=== PATIENT | female | born 1940 | race Caucasian/White ===

== ENCOUNTER → 2016-10-18 | Outpatient (CLI) | payer OTHER ==
[2015-12-05 09:30] VITALS: BP 137/67
[~2016-10-18] MED LIST: ALBU2.5V5 NEB; AMLO5TAB2 PO; BUDE10.2 IH; CEFP200T PO; CHOL200027 PO; CYAN10005 PO; Fluticasone/Vilanterol INH; HYDR-2678 PO; PRED-220 PO
--- NOTE | 2016-10-18 11:29 | RAD ---
Indication cough fever. History of lung malignancy. PA and lateral views the chest were obtained and are compared to an examination 07/05/2016. Known parenchymal mass in the right lung is reproduced. It is larger now measuring approximately 17 x 10 cm where as previously it measured approximately 14 x 8. The heart and pulmonary vessels are normal and the left lung is clear. There is no pleural fluid or pneumothorax. The visualized bony structures appear grossly intact. Breast implants are noted. IMPRESSION: Enlarging soft tissue mass in the right lung compatible with progressive ongoing primary malignancy
== END | disposition home or self-care (01) ==
LOC: RAD 09:33
PROVIDERS: ATTEND Radiology Radiation Oncology
DX: C34.90 Malignant neoplasm of unspecified part of unspecified bronchus or lung (principal); R05 Cough; R50.9 Fever, unspecified; R53.83 Other fatigue
CPT/HCPCS: 71020

== ENCOUNTER → 2017-01-03 | Outpatient (CLI) | payer OTHER ==
[2015-12-05 09:30] VITALS: BP 137/67
[~2017-01-03] MED LIST changes: +IOHEXOL 300 MG/ML 75 ML VIAL IV ONE
--- NOTE | 2017-01-05 08:58 | RAD ---
CT chest with IV contrast . 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 Comparison: CT chest 11/27/2015. Technique: Helical CT of the chest was performed after the administration of intravenous contrast, 75 mL Omnipaque 350. Axial, sagittal, and coronal reconstructions were obtained. One or more of the following individualized dose reduction techniques were utilized for the study: Automated exposure control Adjustment of mA and/or kV according to patient's size Use of iterative reconstruction technique. Findings: Visualized thyroid is mildly heterogeneous. Trachea and mainstem bronchi appear patent. Aortic atherosclerosis is present. Nonspecific right lower paratracheal lymph node measuring 1.3 x 0.8 cm (previously 1.4 x 0.9 cm), not definitely changed. Largest subcarinal lymph node measures 1.3 x 0.7 cm (previously 1.9 x 0.6 cm). Bilateral silicone breast implants are seen with capsular calcifications. Moderate emphysematous changes of lungs are seen. There is interval enlargement of large right lower lobe mass. The mass is heterogeneous and demonstrates areas of calcification as well as areas of lower attenuation which could indicate necrosis. There is also evidence of invasion of the mass into the right chest wall involving the right posterior ninth rib versus metastasis to the right ninth rib. Including the chest wall/right ninth rib component, the mass measures roughly 11 cm in AP dimension x 12 cm in transverse dimension x 15.5 cm in craniocaudal dimension (on previous study, maximum dimension was reported at 9.5 cm). At the right lung base, there appeared to be several separate lobulated masses and nodules, compatible with satellite lesions. T9 vertebral level demonstrates sclerotic focus, unchanged from previous study, favored to be bone island. The liver demonstrates multiple low-attenuation lesions with the largest unchanged in the right hepatic lobe measuring 3.7 cm with Hounsfield units and is compatible with a cyst. The smaller lesions are unchanged as well. Impression: 1. Interval enlargement of right lower lobe heterogeneous mass with areas of calcification. There is now evidence of direct extension to the right chest wall versus large osseous metastasis involving the posterior right ninth rib. There is also interval development of multiple large satellite masses and nodules at the right lung base. 2. Small, nonspecific mediastinal lymph nodes are unchanged.
== END | disposition home or self-care (01) ==
LOC: CT 07:10
PROVIDERS: ATTEND Radiology Radiation Oncology
DX: C34.90 Malignant neoplasm of unspecified part of unspecified bronchus or lung (principal)
CPT/HCPCS: 71260; Q9967

== ENCOUNTER → 2017-05-22 | Outpatient (CLI) | payer OTHER ==
[2015-12-05 09:30] VITALS: BP 137/67
[~2017-05-22] MED LIST changes: -IOHEXOL 300 MG/ML 75 ML VIAL IV ONE; +OXYC-328 PO; +PROC10TA57 PO
--- NOTE | 2017-05-22 13:48 | RAD ---
Exam performed: 2 view chest. History: Right-sided worsening chest pain, history of lung cancer. Date of service: 05/22/17. Comparison: Two-view chest from 10/18/16. PA and lateral views chest findings: Increasing right pleural effusion without fusion of the right hemidiaphragm. The left lung is clear. There is no left-sided pleural effusion or pulmonary mass. There is bony erosion involving right ninth rib. Impression: Increasing right pleural effusion. Underlying right lung mass may be obscured
== END | disposition home or self-care (01) ==
LOC: RAD 10:45
PROVIDERS: ATTEND Radiology Radiation Oncology
DX: C34.90 Malignant neoplasm of unspecified part of unspecified bronchus or lung (principal); J90 Pleural effusion, not elsewhere classified; R91.8 Other nonspecific abnormal finding of lung field; Z85.118 Personal history of other malignant neoplasm of bronchus and lung
CPT/HCPCS: 71020

== ENCOUNTER → 2017-05-30 | Outpatient (CLI) | payer OTHER ==
[2015-12-05 09:30] VITALS: BP 137/67
--- NOTE | 2017-05-30 13:28 | RAD ---
Exam performed: CT chest without contrast. History: Lung cancer. Date of service: 05/30/17. Comparison: Nuclear medicine PET scan from 01/13/16. Technique: Contiguous helical acquisitions are obtained through the chest without IV contrast. Sagittal and coronal reformatted images are obtained and reviewed. Findings: Large calcified mass is seen in the right lower lobe. The exact size of the lesion is difficult to measure due to presence of adjacent atelectasis and large pleural effusion. There is narrowing of the right inferior segment of bronchus which appears to be encased secondary to the mass. There is a large soft tissue extra pulmonary mass measuring 4.3 x 8.3 x 4.5 cm in AP, transverse and coronal dimension in the vicinity of the right ninth rib which is not clearly identified and may either have been resected or completely destroyed by the mass. There is a 1 cm precarinal lymph node. A 11 mm right paratracheal lymph node. Additional smaller subcentimeter precarinal and subcarinal lymph nodes are also seen. Diffuse atheromatous aortic and coronary calcifications. No neck or axillary lymphadenopathy is seen. Thyroid gland appears normal. Emphysematous lungs. The left lung is clear. No left pleural effusion seen. Limited evaluation of the upper abdominal structures demonstrates low attenuating abnormalities in the liver likely cysts. Both adrenal glands and visualized kidneys appear normal. Impression: 1. Large calcified mass in the posterior basal segment of the right lower lobe consistent with a previously known malignancy with a large right pleural effusion. 2. Large extra pulmonary soft tissue density mass in the vicinity of right ninth rib which appears absent/destroyed consistent with adjacent tumor invasion/soft tissue metastasis 3. Mildly enlarged mediastinal adenopathy probably metastatic. PQRS Compliance Statement: One or more of the following individualized dose reduction techniques were utilized for this examination: 1. Automated exposure control 2. Adjustment of the mA and/or kV according to patient size 3. Use of iterative reconstruction technique
== END | disposition home or self-care (01) ==
LOC: CT 08:40
PROVIDERS: ATTEND Radiology Radiation Oncology
DX: J90 Pleural effusion, not elsewhere classified (principal); J98.11 Atelectasis; Z85.118 Personal history of other malignant neoplasm of bronchus and lung
CPT/HCPCS: 71250